=== PATIENT | female | born 1950 | race Caucasian/White ===

== ENCOUNTER 2018-10-09 13:06 | Emergency (ER) | payer OTHER ==
[~2018-10-09] VITALS: Ht 149.9 cm; Wt 56.5 kg
[2018-10-09 14:50] VITALS: BP 161/75
== END 2018-10-09 14:50 | disposition home or self-care (01) ==
LOC: ED 13:06
DX: S61.214A Laceration without foreign body of right ring finger without damage to nail, initial encounter (principal); S50.11XA Contusion of right forearm, initial encounter; I10 Essential (primary) hypertension; E11.9 Type 2 diabetes mellitus without complications; M19.90 Unspecified osteoarthritis, unspecified site; W54.0XXA Bitten by dog, initial encounter; Y93.89 Activity, other specified; Y92.89 Other specified places as the place of occurrence of the external cause; Y99.8 Other external cause status